=== PATIENT | female | born 2000 | race Caucasian/White ===

== ENCOUNTER 2020-06-07 20:18 | Observation (INO) ==
[2020-06-07] MEDS ORDERED: ONDANSETRON INJ 2 MG/ML 2 ML VIAL IV STA (21:48)
[2020-06-07] MEDS ORDERED: SODIUM CHLORIDE 0.9% 1000ML 1,000 ML IV STA (21:48)
[2020-06-07] MEDS ORDERED: DICYCLOMINE HCL 10 MG/ML 2 ML AMP/VIAL IM ONE (21:48)
[2020-06-07 22:29] LABS: Basophils # (auto) 0.02 K/uL (0-0.2); Basophils % (auto) 0.1 %; Eosinophils # (auto) 0.04 K/uL (0-0.5); Eosinophils % (auto) 0.2 %; Hematocrit (blood only) 39.8 % (37-47); Hemoglobin 14.4 g/dL (12.0-16.0); Immature Granulocytes # (auto) 0.05 K/uL (0.00-0.02); Immature Granulocytes % (auto) 0.3 %; Lymphocytes # (auto) 1.53 K/uL (1.2-3.4); Lymphocytes % (auto) 8.7 %; Mean Corpuscular Hemoglobin 30.7 pg (25-34); Mean Corpuscular Hgb Conc 36.2 g/dL (32-36); Mean Corpuscular Volume 84.9 fL (80-100); Mean Platelet Volume 9.3 fL (7.4-10.4); Monocytes # (auto) 1.24 K/uL (0.11-0.59); Neutrophils # (auto) 14.74 K/uL (1.4-6.5); Neutrophils % (auto) 83.7 %; Platelet Count 307 K/uL (130-400); RDW Coefficient of Variation 12.7 % (11.5-14.5); RDW Standard Deviation 39.6 fL (36.4-46.3); Red Blood Count 4.69 M/uL (4.2-5.4); White Blood Count 17.62 K/uL (4.8-10.8)
[2020-06-07 22:47] LABS: BUN Creatinine Ratio 9.4 (10-20); Calcium 8.6 mg/dl (8.5-10.1); Creatinine Clr Calc Pharmacy 118.3 ml/min; Est GFR (African American) 142.1; Est GFR (Non-African American) 122.6; Potassium 3.5 mmol/L (3.5-5.1)
[2020-06-07 22:49] LABS: Bilirubin,Total 0.4 mg/dl (0.2-1); Globulin 4.1 gm/dl (2.5-4.0); Total Protein 8.1 gm/dl (6.4-8.2)
[2020-06-07 22:51] LABS: Pregnancy Test, Serum Negative (Negative)
[2020-06-07 23:01] LABS: Appearance Urine Clear (Clear); Bilirubin Urine Negative (Negative); Blood Urine Negative (Negative); Color Urine Yellow; Glucose Urine UA Negative (Negative); Ketones Urine Trace (Negative); Leukocyte Esterase Urine Negative (Negative); Nitrite Urine Negative (Negative); Protein Urine Negative (Negative); Specific Gravity Urine 1.009 (1.000-1.030); Urobilinogen Urine Negative (Negative)
[2020-06-07] MEDS ORDERED: MoRPHine SULFATE 4 MG/ML 1 ML CARP\\VIAL IV STA (23:44)
[2020-06-08] MEDS ORDERED: OPTIRAY 320 100ml IV ONE (00:25)
[2020-06-08] MEDS ORDERED: cefOXitin 1,000 MG/50 ML BAG IV STA (00:27)
--- NOTE | 2020-06-08 01:05 | History & Physical Report ---
Date of Service June 08, 2020 Assessment & Plan (1) Acute appendicitis: Due to the patient's clinical presentation along with her labs and imaging we will proceed with an appendectomy. I described the procedure with her including the risks, benefits, and alternatives. She wishes to proceed. She has received cefoxitin in the emergency department we will continue perioperatively We will keep the patient n.p.o. 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 She can be reached at [phone] Further recommendations be made based on her clinical course as unfolds as well as operative findings as above. feeling better than when she came in. still with RLQ pain. discussed options/risks ( bleeding/infection/injury to another structure such as ureter/bowel etc..., leaks, dvt/pe/mi/cva etc... questions answered. will proceed with lap appy this AM. History of Present Illness Chief Complaint: Abdominal pain Primary Care Provider: [facility] This is a 19-year-old female who is a [employer] student. She presented to the emergency department secondary to abdominal pain. She notes that the abdominal pain started earlier today and was located in a generalized fashion throughout her abdomen. She notes the pain persisted throughout the day and she had associated nausea vomiting. She denies any fevers, shakes, chills. She notes that the pain has somewhat shifted and is primarily located in the right lower quadrant at this time. She notes that the pain is palliated somewhat with pain medicines administered in the emergency department. She notes that also feels somewhat better when she lies still. She does not note any provocative factors with the pain does not radiate anywhere else. In the emergency department she did have labs and imaging which apparently reviewed.CT scan of the abdomen and pelvis showed the patient had an abnormal fluid-filled and enlarged appendix measuring approximate 13 mm. Appendicoliths were noted. There is no evidence of free air or abscess but the findings were consistent with acute appendicitis.Labs including CBC were white blood cell count was elevated at 17.6. Hemoglobin, hematocrit, and platelet count were all within normal range.Chemistry profile revealed her sodium, potassium, BUN, and creatinine were all within normal range. A test was noted to be negative. A Covid test was noted to be negative. At the time of my interview the patient was resting comfortably in bed in no distress. Allergies Allergy/AdvReac Type Severity Reaction Status Date / Time No Known Allergies Allergy Unverified 06/07/20 23:58 Home Medications Medication Instructions Recorded Confirmed Type No Known Home Medications 06/07/20 06/07/20 History Past Med/Surg History Medical History IBS (irritable bowel syndrome) Surgical History No pertinent past surgical history Social History Smoking Status: Never smoker Hx Alcohol Use: Yes Alcohol type: beer and wine Hx Substance Use: Yes Last Used Substance: Days (ago) Last Used Substance Other:: 06/06/20 Preferred Language: Ivorian Communication Ability: Effective Beliefs That Will Affect Care: None Current Living Situation: Other Current Living Situation Comment: Roomates Feels Safe at Home: Yes Safety Concerns: Feels Safe At This Time Assistive Devices: None Review of Systems Constitutional: no fever and no chills Eyes: no diplopia Ear, Nose, Mouth, Throat: no ear pain Respiratory: no cough and no dyspnea Cardiovascular: no chest pain Gastrointestinal: + abdominal pain, + nausea and + vomiting Genitourinary: no dysuria Musculoskeletal: no back pain Integumentary: no rash Neurologic: no generalized weakness Physical Exam Constitutional: well developed and well nourished; no acute distress Eyes: no conjunctival abnormality ENMT: Ears: no hearing impairment Neck: trachea midline Respiratory: normal respiratory effort, lungs clear to auscultation Cardiovascular: Rate/Rhythm: regular rate Gastrointestinal (Abdomen): Abdomen is soft and nondistended. Bowel sounds are present. Pain with palpation is noted in the right lower quadrant. Rovsing sign is noted to be positive as well. Musculoskeletal: No calf tenderness Skin: no rashes, warm and dry Neurologic: moves all extremities Psychiatric: A+Ox3, euthymic affect Results & Data Results & Data ([facility]) Vital Signs (Past 12 Hours) Vital Signs Temp Pulse Resp BP BP Pulse Ox 06/08/20 00:26 114/74 06/07/20 23:30 99 06/07/20 23:21 133/88 98 06/07/20 23:20 97 06/07/20 23:00 84 14 98 06/07/20 22:50 78 22 98 06/07/20 22:40 80 17 100 06/07/20 22:20 92 H 16 99 06/07/20 22:01 99 H 23 100 06/07/20 20:23 37.1 C 110 H 16 127/83 98 PG Care Time/CCT Total # of Minutes Spent Total Time Spent with Patient: Total time spent is greater than 50% in coordination of care (as documented) at patient's floor/unit and/or counseling patient: Coding Level of Care Code 48053 OBS Care - Level 3 Diagnoses Acute appendicitis K35.80
[2020-06-08] MEDS ORDERED: ACETAMINOPHEN 1,000 MG/100 ML VIAL IV PRN ×2 (01:07→15:44)
[2020-06-08] MEDS ORDERED: ONDANSETRON INJ 2 MG/ML 2 ML VIAL IV PRN ×2 (01:07→09:59)
[2020-06-08] MEDS ORDERED: MoRPHine SULFATE 2 MG/ML CARP IV PRN (01:07)
[2020-06-08] MEDS ORDERED: cefOXitin 2,000 MG in DEXTROSE 5% 50 ML IV SCH (01:15)
[2020-06-08 02:13] LABS: Influenza A virus by PCR Negative (Neg); Influenza B virus by PCR Negative (Neg); RSV by PCR Negative (Neg); SARS CoV2 RNA(COVID-19) InHosp NEGATIVE (Negative)
[2020-06-08] MEDS ORDERED: MoRPHine SULFATE 4 MG/ML 1 ML CARP\\VIAL IV STA (02:29)
[2020-06-08] MEDS: LACTATED RINGER'S 1,000 ML IV SCH ×2 (02:58→17:01)
--- NOTE | 2020-06-08 03:21 | Emergency Department Note ---
History of Present Illness General Chief complaint: Abdominal Pain Stated complaint: ABDOMINAL PAIN, NAUSEA Time Seen by Provider: 06/07/20 21:43 History of Present Illness Maximum Pain Intensity: 5 This 19-year-old presents to the ER complaining of right lower quadrant pain Location: Right lower quadrant Quality: Throbbing Severity: Moderate Duration: Today Timing: Today Context: Pain persisted and patient came in Modifying factors: better with rest; worse with palpation Patient states she has a history of IBS and symptoms feel different. No prior surgeries. She is not due for her menstrual cycle. Patient denies chest pain, dyspnea, fevers, vomiting, diarrhea, urinary symptoms. Home Medications Medication Instructions Recorded Confirmed Type No Known Home Medications 06/07/20 06/07/20 History Allergies Allergy/AdvReac Type Severity Reaction Status Date / Time No Known Allergies Allergy Unverified 06/07/20 23:58 Past Med/Surg History Medical History IBS (irritable bowel syndrome) Surgical History No pertinent past surgical history Social History Smoking Status: Never smoker Hx Alcohol Use: Yes Alcohol type: beer and wine Hx Substance Use: Yes Last Used Substance: Days (ago) Last Used Substance Other:: 06/06/20 Preferred Language: Armenian Communication Ability: Effective Beliefs That Will Affect Care: None Current Living Situation: Other Current Living Situation Comment: Roomates Feels Safe at Home: Yes Safety Concerns: Feels Safe At This Time Review of Systems A total of 10 systems reviewed and were otherwise negative Physical Exam Vital Signs Vital Signs - 24 hr 06/07/20 20:23 06/07/20 22:01 06/07/20 22:20 Temperature 37.1 C Temperature Source Temporal Artery Scan Pulse Rate 110 H 99 H 92 H Pulse Rate from SpO2 Sensor 98 H 96 H Pulse Rhythm Regular Pulse Strength Normal Respiratory Rate 16 23 16 Respiratory Effort / Characteristics Non-Labored Respiratory Depth Normal Respiratory Pattern Regular Blood Pressure 127/83 Blood Pressure [Left Arm] Blood Pressure Mean 97 Blood Pressure Mean [Left Arm] Blood Pressure Position Sitting Pulse Oximetry 98 100 99 Oxygen Delivery Method Room Air Sepsis Recent Fever Within 48 Hours No Sepsis New/Unexplained Change in Mental Status No Sepsis Action Taken by Nursing No Action Required 06/07/20 22:40 06/07/20 22:50 06/07/20 23:00 Temperature Temperature Source Pulse Rate 80 78 84 Pulse Rate from SpO2 Sensor 83 81 85 Pulse Rhythm Pulse Strength Respiratory Rate 17 22 14 Respiratory Effort / Characteristics Respiratory Depth Respiratory Pattern Blood Pressure Blood Pressure [Left Arm] Blood Pressure Mean Blood Pressure Mean [Left Arm] Blood Pressure Position Pulse Oximetry 100 98 98 Oxygen Delivery Method Sepsis Recent Fever Within 48 Hours Sepsis New/Unexplained Change in Mental Status Sepsis Action Taken by Nursing 06/07/20 23:20 06/07/20 23:21 06/07/20 23:30 Temperature Temperature Source Pulse Rate Pulse Rate from SpO2 Sensor 102 H 98 H 102 H Pulse Rhythm Pulse Strength Respiratory Rate Respiratory Effort / Characteristics Respiratory Depth Respiratory Pattern Blood Pressure 133/88 Blood Pressure [Left Arm] Blood Pressure Mean 103 Blood Pressure Mean [Left Arm] Blood Pressure Position Pulse Oximetry 97 98 99 Oxygen Delivery Method Sepsis Recent Fever Within 48 Hours Sepsis New/Unexplained Change in Mental Status Sepsis Action Taken by Nursing 06/07/20 23:50 06/08/20 00:20 06/08/20 00:23 Temperature Temperature Source Pulse Rate 86 82 Pulse Rate from SpO2 Sensor 95 H 86 83 Pulse Rhythm Pulse Strength Respiratory Rate 16 20 Respiratory Effort / Characteristics Respiratory Depth Respiratory Pattern Blood Pressure 114/74 Blood Pressure [Left Arm] Blood Pressure Mean 87 Blood Pressure Mean [Left Arm] Blood Pressure Position Pulse Oximetry 100 95 99 Oxygen Delivery Method Sepsis Recent Fever Within 48 Hours Sepsis New/Unexplained Change in Mental Status Sepsis Action Taken by Nursing 06/08/20 00:26 06/08/20 00:30 06/08/20 00:40 Temperature Temperature Source Pulse Rate 83 90 Pulse Rate from SpO2 Sensor 85 94 H Pulse Rhythm Pulse Strength Respiratory Rate 18 16 Respiratory Effort / Characteristics Respiratory Depth Respiratory Pattern Blood Pressure Blood Pressure [Left Arm] 114/74 Blood Pressure Mean Blood Pressure Mean [Left Arm] 87 Blood Pressure Position Pulse Oximetry 99 100 Oxygen Delivery Method Sepsis Recent Fever Within 48 Hours Sepsis New/Unexplained Change in Mental Status Sepsis Action Taken by Nursing 06/08/20 00:50 06/08/20 01:00 Temperature Temperature Source Pulse Rate 78 83 Pulse Rate from SpO2 Sensor 79 86 Pulse Rhythm Pulse Strength Respiratory Rate 16 14 Respiratory Effort / Characteristics Respiratory Depth Respiratory Pattern Blood Pressure Blood Pressure [Left Arm] Blood Pressure Mean Blood Pressure Mean [Left Arm] Blood Pressure Position Pulse Oximetry 99 96 Oxygen Delivery Method Sepsis Recent Fever Within 48 Hours Sepsis New/Unexplained Change in Mental Status Sepsis Action Taken by Nursing VITALS: Vitals are noted on the nurse's note and reviewed by myself. Vital signs stable. GENERAL: Pleasant female, in no acute distress, nondiaphoretic, well-developed well-nourished. SKIN: Capillary reflex less than 2 seconds. HEENT: Normocephalic. PERRLA. EOMI. Nares patent. Mucous membranes moist. Neck is supple without nuchal rigidity. HEART: Regular rate and rhythm without murmurs gallops or rubs. LUNGS: Clear to auscultation bilaterally without wheezes, rales or rhonchi. No retractions or accessory muscle use. ABDOMEN: Positive bowel sounds x 4. Normal tympanic percussion. Soft, tender to palpation right lower quadrant, without masses or organomegaly. Holley sign negative. No guarding or rebound tenderness. No CVA tenderness MUSCULOSKELETAL: No gross musculoskeletal defects. NEURO: Patient was alert and oriented to person place and time. No focal neurological deficits. Course Administered Medications Acetaminophen (Ofirmev) 1,000 mg in 100 mls @ 400 mls/hr IV Q8H PRN PRN Reason: Pain Stop: 06/11/20 01:06 Last Admin: 06/08/20 03:09 Dose: 400 mls/hr Documented by: [id number] Lactated Ringer's (Lr) 1,000 mls @ 75 mls/hr IV .[id number] REINA Stop: 07/08/20 01:14 Last Admin: 06/08/20 02:58 Dose: 75 mls/hr Documented by: [id number] Discontinued Medications Dicyclomine HCl (Dicyclomine Hcl 10 Mg/Ml 2 Ml Amp/Vial) 20 mg IM NOW ONE Stop: 06/07/20 21:49 Last Admin: 06/07/20 22:31 Dose: 20 mg Documented by: [id number] Sodium Chloride (Nss 1000ml) 1,000 mls @ 999 mls/hr IV .Q1H1M STA Stop: 06/07/20 22:48 Last Infusion: 06/08/20 00:02 Dose: 0 mls/hr Documented by: [id number] Admin: 06/07/20 22:30 Dose: 999 mls/hr Documented by: [id number] Cefoxitin Sodium (Mefoxin) 1,000 mg in 50 mls @ 100 mls/hr IV NOW STA Stop: 06/08/20 00:56 Last Infusion: 06/08/20 01:11 Dose: 0 mls/hr Documented by: [id number] Admin: 06/08/20 00:49 Dose: 100 mls/hr Documented by: [id number] Ioversol (Ioversol 100ml) 100 ml IV ONCE ONE Stop: 06/08/20 00:26 Last Admin: 06/08/20 00:26 Dose: 82 ml Documented by: [id number] Morphine Sulfate (Morphine Sulfate 4 Mg/Ml 1 Ml Carp\Vial) 4 mg IV NOW STA Stop: 06/07/20 23:45 Last Admin: 06/08/20 00:25 Dose: 4 mg Documented by: [id number] Morphine Sulfate (Morphine Sulfate 4 Mg/Ml 1 Ml Carp\Vial) 4 mg IV NOW STA Stop: 06/08/20 02:30 Last Admin: 06/08/20 02:32 Dose: 4 mg Documented by: [id number] Ondansetron HCl (Ondansetron Inj 2 Mg/Ml 2 Ml Vial) 4 mg IV NOW STA Stop: 06/07/20 21:49 Last Admin: 06/07/20 22:30 Dose: 4 mg Documented by: [id number] Medical Decision Making Medical Records Attestation: I reviewed the patient's medical records. Home Medications Current Medication List: was personally reviewed by me Laboratory Data Attestation: I reviewed the patient's lab results. Result diagrams: 06/07/20 22:07 06/07/20 22:07 Lab Results 06/07/20 06/07/20 06/07/20 Range/Units 22:05 22:07 22:07 WBC 17.62 H (4.8-10.8) K/uL RBC 4.69 (4.2-5.4) M/uL Hgb 14.4 (12.0-16.0) g/dL Hct 39.8 (37-47) % MCV 84.9 (80-100) fL MCH 30.7 (25-34) pg MCHC 36.2 H (32-36) g/dL RDW Std Deviation 39.6 (36.4-46.3) fL RDW Coeff of Sheyla 12.7 (11.5-14.5) % Plt Count 307 (130-400) K/uL MPV 9.3 (7.4-10.4) fL Immature Gran % (Auto) 0.3 % Neut % (Auto) 83.7 % Lymph % (Auto) 8.7 % [place] % (Auto) 7.0 % Eos % (Auto) 0.2 % Baso % (Auto) 0.1 % Neut # (Auto) 14.74 H (1.4-6.5) K/uL Lymph # (Auto) 1.53 (1.2-3.4) K/uL [place] # (Auto) 1.24 H (0.11-0.59) K/uL Eos # (Auto) 0.04 (0-0.5) K/uL Baso # (Auto) 0.02 (0-0.2) K/uL Immature Gran # (Auto) 0.05 H (0.00-0.02) K/uL Sodium 137 (136-145) mmol/L Potassium 3.5 (3.5-5.1) mmol/L Chloride 105 (98-107) mmol/L Carbon Dioxide 24 (21-32) mmol/L Anion Gap 8.0 (3-11) BUN 7 (7-18) mg/dl Creatinine 0.71 (0.6-1.2) mg/dl Est Cr Clr Drug Dosing 118.3 ml/min Est GFR ( Amer) 142.1 Est GFR (Non-Af Amer) 122.6 BUN/Creatinine Ratio 9.4 L (10-20) Glucose 95 (70-99) mg/dl Calcium 8.6 (8.5-10.1) mg/dl Total Bilirubin 0.4 (0.2-1) mg/dl AST 13 L (15-37) U/L ALT 16 (12-78) U/L Alkaline Phosphatase 58 (45-117) U/L Total Protein 8.1 (6.4-8.2) gm/dl Albumin 4.0 (3.4-5.0) gm/dl Globulin 4.1 H (2.5-4.0) gm/dl Albumin/Globulin Ratio 1.0 (0.9-2) Lipase 107 (73-393) U/L HCG, Qual (Negative) Urine Color Yellow Urine Appearance Clear (Clear) Urine pH 6.0 (4.5-7.5) Ur Specific [place] 1.009 (1.000-1.030) Urine Protein Negative (Negative) Urine Glucose (UA) Negative (Negative) Urine Ketones Trace H (Negative) Urine Blood Negative (Negative) Urine Nitrite Negative (Negative) Urine Bilirubin Negative (Negative) Urine Urobilinogen Negative (Negative) Ur Leukocyte Esterase Negative (Negative) COVID-19 Eval Order SARS-CoV-2 (PCR) (Negative) Influenza Type A (PCR) (Neg) Influenza Type B (PCR) (Neg) RSV (RT-PCR) (Neg) 06/07/20 06/08/20 06/08/20 Range/Units 22:07 00:50 00:50 WBC (4.8-10.8) K/uL RBC (4.2-5.4) M/uL Hgb (12.0-16.0) g/dL Hct (37-47) % MCV (80-100) fL MCH (25-34) pg MCHC (32-36) g/dL RDW Std Deviation (36.4-46.3) fL RDW Coeff of Sheyla (11.5-14.5) % Plt Count (130-400) K/uL MPV (7.4-10.4) fL Immature Gran % (Auto) % Neut % (Auto) % Lymph % (Auto) % [place] % (Auto) % Eos % (Auto) % Baso % (Auto) % Neut # (Auto) (1.4-6.5) K/uL Lymph # (Auto) (1.2-3.4) K/uL [place] # (Auto) (0.11-0.59) K/uL Eos # (Auto) (0-0.5) K/uL Baso # (Auto) (0-0.2) K/uL Immature Gran # (Auto) (0.00-0.02) K/uL Sodium (136-145) mmol/L Potassium (3.5-5.1) mmol/L Chloride (98-107) mmol/L Carbon Dioxide (21-32) mmol/L Anion Gap (3-11) BUN (7-18) mg/dl Creatinine (0.6-1.2) mg/dl Est Cr Clr Drug Dosing ml/min Est GFR ( Amer) Est GFR (Non-Af Amer) BUN/Creatinine Ratio (10-20) Glucose (70-99) mg/dl Calcium (8.5-10.1) mg/dl Total Bilirubin (0.2-1) mg/dl AST (15-37) U/L ALT (12-78) U/L Alkaline Phosphatase (45-117) U/L Total Protein (6.4-8.2) gm/dl Albumin (3.4-5.0) gm/dl Globulin (2.5-4.0) gm/dl Albumin/Globulin Ratio (0.9-2) Lipase (73-393) U/L HCG, Qual Negative (Negative) Urine Color Urine Appearance (Clear) Urine pH (4.5-7.5) Ur Specific [place] (1.000-1.030) Urine Protein (Negative) Urine Glucose (UA) (Negative) Urine Ketones (Negative) Urine Blood (Negative) Urine Nitrite (Negative) Urine Bilirubin (Negative) Urine Urobilinogen (Negative) Ur Leukocyte Esterase (Negative) COVID-19 Eval Order CovFluRsv at [facility] SARS-CoV-2 (PCR) NEGATIVE (Negative) Influenza Type A (PCR) Negative (Neg) Influenza Type B (PCR) Negative (Neg) RSV (RT-PCR) Negative (Neg) Imaging Data Attestation: I personally reviewed and interpreted this imaging study as follows: MDM Narrative Prior records/ancillary studies reviewed. Triage Nursing notes reviewed. Additional history obtained from boyfriend. The patient's history was concerning for abdominal pain. Differential diagnosis: Etiologies such as appendicitis, diverticulitis, PUD, biliary pathology, UTI, pancreatitis, obstruction, mesenteric ischemia, aortic pathology, infections, inflammatory bowel disease, renal colic, as well as others were entertained. Physical examination findings: As above. ER treatment provided: An order was placed for continuous cardiac monitoring. The monitor shows a rate of 60-100 with a sinus rhythm. Mefoxin, IV fluids, Bentyl, Zofran, morphine On reassessment the patient felt better. Diagnostics interpreted by me: The labs revealed leukocytosis, negative hCG Imaging studies: CT ABDOMEN & PELVIS With Contrast: Abnormal fluid-filled enlarged appendix with appendicoliths, located in the right lower anterior pelvis. Mild surrounding st randing. Appendix 13 mm. Cecum is also in the lower anterior pelvis. Consistent with acute appendicitis. No free air or abscess Left renal cyst. Radiologist: Paulette Patton M.D. Study ready at 00:15 and initial results transmitted at 00:25 Communications: Clear Time Type Notes 06/08/20 00:24 Call Doctor Regarding Appendicitis, called Dr. Avila on 06/08 00:24 (-04:00) Consultation: A consultation was placed with the surgical midlevel, Glenn. The case was discussed and diagnostics were reviewed. The patient was evaluated in the ER for further treatment. Exam and history seem consistent with acute appendicitis. Surgery evaluated the patient. Patient started antibiotics. She was NPO. Patient is agreeable to treatment plan of admission. Surgery will admit. By the evaluation outlined above emergent etiologies such as diverticulitis, PUD, biliary pathology, UTI, pancreatitis, obstruction, mesenteric ischemia, aortic pathology, inflammatory bowel disease, renal colic, as well as others were deemed relatively unlikely. The pt informed about the findings as listed above. All questions were answered and pleased with the treatment. The chart was completed utilizing [employer] Speech voice recognition software. Grammatical errors, random word insertions, pronoun errors, and incomplete sentences are an occassional consequence of this system due to software limitations, ambient noise, and hardware issues. Any formal questions or concerns about the content, text, or information contained within the body of this dictation should be directly addressed to the physician workers compensation claims assistant for clarification. Impression & Plan Acute appendicitis Discharge Plan Visit Data Chief Complaint: Abdominal Pain Stated Complaint: ABDOMINAL PAIN, NAUSEA ED Provider: Matthew Hays ED Midlevel Provider: Whit Bucio Discharge Problem: Acute appendicitis Patient Disposition: Admitted As Inpatient Condition: Good Discharge Instructions Interventions: ED Discharge Assessment Last Done: 06/08/20 02:24
[2020-06-08] MEDS: cefOXitin 2,000 MG in DEXTROSE 5% 50 ML IV SCH ×3 (05:56→17:18)
--- NOTE | 2020-06-08 07:29 | CT Scan Report ---
ABDOMEN AND PELVIS CT WITH IV CONTRAST CT DOSE: 283.62 mGy.cm HISTORY: Acute right lower quadrant abdominal pain rlq pain TECHNIQUE: Multiaxial CT images of the abdomen and pelvis were performed following the IV administrat ion of 82 cc of Optiray 320, A dose lowering technique was utilized adhering to the principles of AL BEN. COMPARISON STUDY: None. FINDINGS: The imaged inferior cardiac chambers are unremarkable. Clear lung bases. No pneumatosis or pneumoperi toneum. Unremarkable spleen, pancreas, adrenal glands, gallbladder and liver. Unremarkable kidneys. 1 .4 cm cyst of the superior pole left kidney. Unremarkable urinary bladder. Uterus and adnexa are unre markable. Aorta and IVC are within normal limits. There is no adenopathy. Scattered nondilated air and fluid-filled loops of small bowel within the lower abdomen and pelvis odell ggest ileus. The appendix is dilated and fluid-filled measuring up to 9 mm transversely containing 2 intraluminal appendicoliths measuring up to 9 mm. Mild associated wall thickening with trace periappe ndiceal stranding. No abscess. Unremarkable soft tissues. IMPRESSION: 1. Findings compatible with acute appendicitis with two associated appendicoliths. No pneumoperitoneu m or abscess. 2. Mild reactive small bowel ileus of the pelvis. ACT 112: Negative or not required by law. The above report was generated using voice recognition software. It may contain grammatical, syntax o r spelling errors. Electronically signed by: Galen Washington M.D. 06/08/2020 7:27 AM
[2020-06-08] MEDS ORDERED: HYDROmorphone INJ 1 MG/ML SYRINGE IV PRN (09:59)
[2020-06-08] MEDS ORDERED: fentaNYL citrate 100 MCG/2 ML VIAL IV PRN (09:59)
[2020-06-08] MEDS ORDERED: SCOPOLAMINE 1 MG TDSY TD STA (09:59)
[2020-06-08] MEDS ORDERED: ATROPINE SULFATE 0.1 MG/ML 10ML SYR IV PRN (09:59)
[2020-06-08] MEDS ORDERED: ePHEDrine sulfate 50 MG/ML AMP IV PRN (09:59)
[2020-06-08] MEDS ORDERED: GLYCOPYRROLATE 0.2 MG/ML VIAL ONE (10:07)
[2020-06-08] MEDS ORDERED: PROPOFOL IV EMULSION 10 MG/ML 20 ML VIAL IV ONE (10:07)
[2020-06-08] MEDS ORDERED: ONDANSETRON INJ 2 MG/ML 2 ML VIAL ONE (10:07)
[2020-06-08] MEDS ORDERED: fentaNYL citrate 100 MCG/2 ML VIAL ONE ×2 (10:07→11:37)
[2020-06-08] MEDS ORDERED: LIDOCAINE HCL 2% 2 ML VIAL/AMP(20MG/ML) INFIL ONE (10:07)
[2020-06-08] MEDS ORDERED: MIDAZOLAM HCL 1 MG/ML 2ML VIAL ONE (10:07)
[2020-06-08] MEDS ORDERED: DEXAMETHASONE SOD INJ 4 MG/ML VIAL ONE (10:07)
[2020-06-08] MEDS ORDERED: BUPIVACAINE/EPINEPHRINE 0.5% MPF 1:200,000 30 ML VIAL ONE (10:08)
[2020-06-08] MEDS ORDERED: FAMOTIDINE/PF 20 MG/2 ML VIAL IV ONE (10:12)
[2020-06-08] MEDS ORDERED: ROCURONIUM BROMIDE 10 MG/ML 5 ML VIAL IV ONE (10:18)
[2020-06-08] MEDS ORDERED: METOCLOPRAMIDE HCL INJ 5 MG/ML 2 ML VIAL ONE (10:18)
--- NOTE | 2020-06-08 10:31 | Anesthesiology Consultation ---
Date of Service June 08, 2020 Assessment & Plan (1) Encounter for pre-operative examination: Chart Review Chart Review: Acceptable Risk for Surgery and Patient NOT seen in Pre Admission Testing Consults Requested none History Surgery Operation Date: 06/08/20 07:00 Proposed Procedures p Laparoscopic Appendectomy, Possible Open - Michael Lange, Height/Weight Height: 5 ft 6 in Weight: 62.1 kg Allergies Allergy/AdvReac Type Severity Reaction Status Date / Time No Known Allergies Allergy Unverified 06/07/20 23:58 Medications Home Medications Medication Instructions Recorded Confirmed Last Taken No Known Home Medications 06/07/20 06/07/20 Unknown Active Medications Generic Name Dose Route Start Last Admin Trade Name Freq PRN Reason Stop Dose Admin Acetaminophen 1,000 mg in 100 mls @ 400 mls/hr 06/08/20 01:07 06/08/20 03:55 Ofirmev IV 06/11/20 01:06 Infused Q8H PRN Infusion Pain Lactated Ringer's 1,000 mls @ 75 mls/hr 06/08/20 01:15 06/08/20 10:02 Lr IV 07/08/20 01:14 0 mls/hr .[id number] REINA Infusion Cefoxitin Sodium 2,000 mg/ 60 mls @ 100 mls/hr 06/08/20 06:00 06/08/20 06:33 Dextrose IV 06/18/20 05:59 Infused Q6H REINA Infusion Morphine Sulfate 2 mg 06/08/20 01:07 06/08/20 06:01 Morphine Sulfate 2 Mg/Ml Carp IV 06/22/20 01:06 2 mg Q3H PRN Administration Pain Ondansetron HCl 4 mg 06/08/20 01:07 06/08/20 08:08 Ondansetron Inj 2 Mg/Ml 2 Ml Vial IV 07/08/20 01:06 4 mg Q6H PRN Administration Nausea And Vomiting NPO Date Last Intake of Fluids: 06/07/20 Time Last Intake of Fluids: 22:00 Date Last Intake of Solids: 06/07/20 Time Last Intake of Solids: 15:00 Past Medical History Medical History IBS (irritable bowel syndrome) Exercise / Class Metabolic Activity 1 > 8 Run/Swim/Ski/Tennis Past Surgical History Surgical History No pertinent past surgical history wisdom teeth Past Anesthesia History No Hx of Anesthesia Complications and No Family Hx of Anesthesia Complications History of PONV No Hx of PONV and No Hx of Motion Sickness Social History Smoking Status: Never smoker Do You Dip or Chew Tobacco: No Hx Alcohol Use: Yes Alcohol type: beer and wine alcohol intake frequency: holidays/special occasions only Hx Substance Use: Yes substance use type: marijuana Last Used Substance: Days (ago) Last Used Substance Other:: 06/06/20 Physical Exam Vital Signs Last Vital Signs Temp 36.6 C 06/08/20 07:00 Pulse 78 06/08/20 07:00 Resp 22 06/08/20 07:00 BP 110/77 06/08/20 07:00 Pulse Ox 98 06/08/20 07:00 Testing Laboratory Results 06/07/20 22:07 06/07/20 22:07 Urine Color Yellow 06/07/20 22:05 Urine Appearance Clear (Clear) 06/07/20 22:05 Urine pH 6.0 (4.5-7.5) 06/07/20 22:05 Ur Specific Mccarr 1.009 (1.000-1.030) 06/07/20 22:05 Urine Protein Negative (Negative) 06/07/20 22:05 Urine Glucose (UA) Negative (Negative) 06/07/20 22:05 Urine Ketones Trace (Negative) H 06/07/20 22:05 Urine Nitrite Negative (Negative) 06/07/20 22:05 Ur Leukocyte Esterase Negative (Negative) 06/07/20 22:05
[2020-06-08] MEDS ORDERED: KETOROLAC 30 MG/ML VIAL ONE (11:37)
--- NOTE | 2020-06-08 11:59 | Operative Report ---
PG Post Operative Report Pre & Post Diagnosis Operation Date: 06/08/20 07:00 Pre-Op Diagnosis: Acute appendicitis Post-Op Diagnosis: Acute appendicitis I identified the patient and participated in the time-out.: Yes Procedure Operation Date: 06/08/20 07:00 Actual Procedures p Laparoscopic Appendectomy(Not Applicable) - Michael Lange DO Surgeon Michael Lange DO Manager Sterile maurilio Kenyon Estimated Blood Loss 5 Findings Consistent with Post-Op Diagnosis Specimens appendix Description of Procedure After informed consent was obtained the patient was taken to the operating room and placed in supine position. After successful intubation a Correa catheter was placed and the left arm was tucked. I began by making a periumbilical incision with an 11 blade scalpel and carried this down through the soft tissue using electrocautery. The anterior rectus fascia was opened using electrocautery and 2 #0 Vicryl stay sutures were placed. The peritoneum was elevated using hemostats and incised under direct vision using a Metzenbaum scissor. A finger sweep was performed. A 12 mm Cole trocar was placed and the abdomen was insufflated to 18 mmHg. A laparoscope was inserted and the abdomen was examined in 360. A suprapubic 5 mm port and a left lower quadrant 12 mm port were placed under direct vision. The patient was air planed to the left as well as placed in a slight Trendelenburg position. We began by looking in the right lower quadrant. We were able to readily identify the appendix and it was grossl y inflamed. It had not perforated. There is a small amount of purulent fluid in the right lower quadrant and the pelvis. We immediately irrigated and suctioned this out. I was able to use primarily blunt dissection to pull the appendix away from the right lower quadrant sidewall. I was then able to use a MARINE purple 60 mm cartridge stapler to transect both the mesentery of the appendix as well as the appendix itself at its base with the cecum. It was then placed into an Endo Catch bag and removed from the camera port site. We thoroughly irrigated the right lower quadrant as well as the pelvis. There was adequate hemostasis. I ran the small bowel backwards from the terminal ileum for about 6 feet all of which was normal. All the peritoneal surfaces were normal. Small/ large bowel, liver, stomach etc. all appeared grossly normal. We did a final irrigation and then removed all the trochars and desufflated the abdomen. The fascia of the camera port as well as the left lower quadrant were closed using 0 Vicryl in [id number] fashion. Wounds were all irrigated and closed using 4-0 Monocryl. Marcaine was injected around them for postoperative analgesia and skin glue used as a dressing. The patient was awakened extubated and transferred to recovery in stable condition. My physician's web marketing assistant was present through the entire case. She assisted with prepping the patient and helped with exposure for port placement, helped run the camera and helped with fascial/wound closure at the end of the procedure as well as dressing placement. I attest to the content of the Intraoperative Record and any orders documented therein. Any exceptions are noted below. I attest to the content of the Intraoperative Record and any orders documented therein. Any exceptions are noted below.
[2020-06-08] MEDS ORDERED: HYDROCODONE/ACETAMOPHEN 5/325MG TAB PO PRN ×2 (13:16)
--- NOTE | 2020-06-08 14:23 | Anesthesiology Progress Note ---
Date of Service June 08, 2020 Anesthesia Post Procedure Vital Signs Vital Signs: Temp Pulse Pulse Pulse Resp BP BP 06/08/20 13:50 37 C 82 16 100/63 06/08/20 13:10 37.0 C 101 H 14 98/57 L 06/08/20 12:50 79 16 109/59 L 06/08/20 12:40 36.6 C 81 15 110/57 L 06/08/20 12:30 82 16 103/53 L 06/08/20 12:20 89 17 106/57 L 06/08/20 12:10 36.8 C 107 H 16 115/70 06/08/20 10:30 36.8 C 97 H 16 117/76 06/08/20 07:00 36.6 C 78 22 110/77 06/08/20 02:51 36.9 C 83 20 116/84 06/08/20 01:50 79 21 06/08/20 01:40 87 12 06/08/20 01:30 100 H 18 06/08/20 01:25 94 H 16 06/08/20 01:10 82 15 06/08/20 01:00 83 14 06/08/20 00:50 78 16 06/08/20 00:40 90 16 06/08/20 00:30 83 18 06/08/20 00:26 114/74 06/08/20 00:23 82 20 114/74 06/08/20 00:20 86 16 06/07/20 23:50 06/07/20 23:30 06/07/20 23:21 133/88 06/07/20 23:20 06/07/20 23:00 84 14 06/07/20 22:50 78 22 06/07/20 22:40 80 17 06/07/20 22:20 92 H 16 06/07/20 22:01 99 H 23 06/07/20 20:23 37.1 C 110 H 16 127/83 Pulse Ox 06/08/20 13:50 96 06/08/20 13:10 97 06/08/20 12:50 94 06/08/20 12:40 95 06/08/20 12:30 99 06/08/20 12:20 100 06/08/20 12:10 100 06/08/20 10:30 99 06/08/20 07:00 98 06/08/20 02:51 99 06/08/20 01:50 96 06/08/20 01:40 96 06/08/20 01:30 98 06/08/20 01:25 97 06/08/20 01:10 97 06/08/20 01:00 96 06/08/20 00:50 99 06/08/20 00:40 100 06/08/20 00:30 99 06/08/20 00:26 06/08/20 00:23 99 06/08/20 00:20 95 06/07/20 23:50 100 06/07/20 23:30 99 06/07/20 23:21 98 06/07/20 23:20 97 06/07/20 23:00 98 06/07/20 22:50 98 06/07/20 22:40 100 06/07/20 22:20 99 06/07/20 22:01 100 06/07/20 20:23 98 Pain Intensity Lower Abdomen: Pain Intensity: 1 Transfer of Care Handoff Completed per policy Notes Mental Status: alert / awake / arousable and participated in evaluation Patient Amnestic to Procedure: Yes Nausea / Vomiting: adequately controlled Pain: adequately controlled Airway Patency, RR, SpO2: stable & adequate BP & HR: stable & adequate Hydration State: stable & adequate Anesthetic Complications: no major complications apparent and Pt Satisfied with anesthetic care
[2020-06-08] MEDS ORDERED: ACETAMINOPHEN 1000 MG/100 ML IV IV ONE (15:42)
[2020-06-08] MEDS ORDERED: oxyCODONE HCL IR 5 MG TAB (IMMEDIATE RELEASE) PO PRN (15:44)
[2020-06-08] MEDS ORDERED: CHECK SCOPOLAMINE PATCH PLACEMENT SCH (16:00)
--- NOTE | 2020-06-09 10:18 | Discharge Summary ---
Date of Service June 09, 2020 Admission HPI Per Admitting Provider This is a 19-year-old female who is a [employer] student. She presented to the emergency department secondary to abdominal pain. She notes that the abdominal pain started earlier today and was located in a generalized fashion throughout her abdomen. She notes the pain persisted throughout the day and she had associated nausea vomiting. She denies any fevers, shakes, chills. She notes that the pain has somewhat shifted and is primarily located in the right lower quadrant at this time. She notes that the pain is palliated somewhat with pain medicines administered in the emergency department. She notes that also feels somewhat better when she lies still. She does not note any provocative factors with the pain does not radiate anywhere else. In the emergency department she did have labs and imaging which apparently reviewed.CT scan of the abdomen and pelvis showed the patient had an abnormal fluid-filled and enlarged appendix measuring approximate 13 mm. Appendicoliths were noted. There is no evidence of free air or abscess but the findings were consistent with acute appendicitis.Labs including CBC were white blood cell count was elevated at 17.6. Hemoglobin, hematocrit, and platelet count were all within normal range.Chemistry profile revealed her sodium, potassium, BUN, and creatinine were all within normal range. A test was noted to be negative. A Covid test was noted to be negative. At the time of my interview the patient was resting comfortably in bed in no distress. Principal Diagnosis acute appendicitis Discharge Exam awake/alert Constitutional well developed and well nourished; no acute distress Respiratory normal respiratory effort Gastrointestinal (Abdomen) Inspection/Auscultation: + abdominal surgical incision (c/d/i with dermabond overtop); abdomen not distended Percussion/Palpation: + abdomen tender (expected richard-incisional tenderness) and abdomen soft Discharge Data Allergies Allergy/AdvReac Type Severity Reaction Status Date / Time No Known Allergies Allergy Unverified 06/07/20 23:58 Consultations 06/08/20 01:14 ED Decision to Admit Stat Procedures Performed Operation Date: 06/08/20 07:00 Actual Procedures p Laparoscopic Appendectomy(Not Applicable) - Michael Lange, DO Ordered Studies 06/07/20 21:48 CT abd pelvis IV con only Urgent Hospital Course (1) Acute appendicitis: This is a 19yF who presented to the [facility] ED on 06/08/20 with abdominal pain. Workup in the ED showed a WBC of 17.[address] a/p concerning for acute appendicitis. The patient was tender to palpation in the RLQ. Patient made NPO with IVF and booked for the OR. On 06/08 the patient went to the OR with Dr. Lange for a laparoscopic appendectomy. The patient tolerated the procedure well, see operative report for full details. Post operatively the patient's diet was advanced, pain managed on prn meds, and incisions clean/dry/intact. On POD#0 (06/08) the patient was deemed stable for discharge to home. She was given instructions to follow up in clinic within 2 weeks. Total Time Total Time Spent Total Time Spent (In Minutes): 10 Discharge Plan Discharge Items Patient Disposition: Home - Self-Care Reason For Visit: APPY Discharge Diagnosis: laparoscopic appendectomy Condition on Discharge: Good Activity: Per Instructions section Lifting: No more than 10 pounds Bathing Comment: may shower starting 06/09/20; no soaking in tubs/pools Exercise/Sports: Wait until after follow-up appointment Driving/Machine Use: do not resume driving while taking narcotics for pain Non-emergency contact: Surgeon Call non-emergency contact if: you have any medication questions, your symptoms worsen, your pain is not controlled, your pain is worsening, your pain is unusual for you, your pain is concerning for you, you have a fever, your temperature is above 101.5, your wound has increased redness, your wound has increased drainage and your wound pain has increased Follow-up/Referrals: Michael Lange, [Surgeon] - (Please call to schedule follow up in clinic within 1- 2 weeks) [facility] [Primary Care Provider] - Diet: Regular Addtl Attending Provider Instructions: You have been prescribed a narcotic called Augusta to take if needed for moderate- severe pain. You should not take Tylenol concurrently with Augusta as they both contain Acetaminophen, and you should not exceed more than 3 grams of Acetaminophen within a 24 hour time period. If you do not require the narcotic Augusta for pain, you may purchase Tylenol and/or Ibuprofen over the counter to take if needed. Pending Studies at Discharge: Yes Studies:: surgical pathology [facility], Smoking Cessation Medications and DC Order Prescriptions: New hydrocodone-acetaminophen 5-325 mg tablet 1 - 2 tab PO .q4h- q6h PRN (Reason: pain, for initial therapy, max 6 tabs per day ) Qty: 12 RF: 0 Discharge Orders: Discharge Order (Routine); Ordered 06/08/20 Ordered By: Karuna Kingston/Other Patient Handouts: What Is Appendicitis?, Surgery for Appendicitis Admission Data Admit Date/Time: 06/08/20 01:09 Attending Provider: Michael Lange Admit Provider: Michael Lange Primary Care Provider: [facility] Other Providers: Michael Lange Other Interventions: Discharge Summary Assessment (RN) Last Done: 06/08/20 18:29 Coding Level of Care Code D/C Day Management <30 mins Diagnoses Acute appendicitis K35.30 Acute appendicitis type: with localized peritonitis Appendicitis abscess presence: without abscess Appendicitis gangrene presence: unspecified whether gangrene present Appendicitis perforation presence: without perforation
== END 2020-06-08 19:07 | disposition home or self-care (01) ==
LOC: ED 20:18 → 3W 20:18